=== PATIENT | female | born 1990 | race Caucasian/White ===

== ENCOUNTER 2017-03-25 20:30 | Inpatient (IN) | payer BC ==
[2017-03-25 20:58] VITALS: BMI 23.9
[2017-03-25] MEDS ORDERED: Bicitra 30 ML UDCUP PO SCH (21:30)
[2017-03-25] MEDS ORDERED: CEFAZOLIN/Water 2 GM/20 ML SYRINGE SLOW IVP SCH ×2 (21:30→23:45)
[2017-03-25] MEDS ORDERED: Lactated Ringer's 1,000 ML IV SCH (21:30)
--- NOTE | 2017-03-25 21:33 | PDOC.LDHP ---
Labor and Delivery H&P Chief complaint: loss of fluid (LOF at 2009 tonight.), other (She had been scheduled for external version next Tuesday.) HPI: Patient is a patient of Dr Mendosa with known breech persistent presentation, now at 40 weeks. She states she has seen MFM this for fetus with short forarm and altered hand morpholohy on sono. She has a history of epilepsy first DX at age 21. She takes Lamictal 400mg BID. Good FM, no VB, no PIH sxs reported. Complete ROS done and all per HPI. Current gestational age (weeks): 40 Dating criteria: last menstrual period Grav: 1 Para: 0 Current complications: breech, other (Suspected 2 vessel cord and physical abnormaliites (arm/hand).) Abnormal US findings: Yes (As described.) Current medications: other (Lamictel 400 mg BID) Previous surgical history: other (Oral surgery- tooth extractions) Allergies/Adverse Reactions: Allergies Allergy/AdvReac Type Severity Reaction Status Date / Time No Known Allergies Allergy Unverified 03/25/17 20:58 Social history: none - Physical Exam Vital signs reviewed and normal: yes General: NAD Heart: RRR Lungs: CTAB Abdomen: other (Bedside sono by me confirms breech (complete) with head at maternal right upper quadrant. FHTs seen.) Extremeties: no edema FHT: category 1 [place] contractions every: irregular - Assessment L&D Assessment: term rupture in membranes (Grossly ruptured on exam.) Brech. anomalies. - Plan Plan: admit to L&D, to OR for section, informed consent obtained, other (Neonataology consulted. Dr Mendosa aware and on her way to L&D. Care reviewed with her. Plan discussed with the patient.)
[2017-03-25 21:51] LABS: #Lymphocytes 2.1 thou/uL (1.20-3.40); #Monocytes 0.7 thou/uL (0.11-0.59); #Neutrophils 9.2 thou/uL (1.40-6.50); %Basophils 0.2 % (0.0-1.0); %Eosinophils 0.3 % (0.0-10.0); %Monocytes 6.2 % (0.0-10.0); Mean Platelet Volume 8.1 fL (7.4-10.4); White Blood Cell (WBC) Count 12.1 thou/uL (4.8-10.8)
[2017-03-25] MEDS ORDERED: Fentanyl 100 MCG/2 ML VIAL ONE (22:16)
[2017-03-25] MEDS ORDERED: ePHEDrine/0.9% NaCl/PF SYRINGE 50 mg/10 ml ONE (22:16)
[2017-03-25] MEDS ORDERED: Oxytocin 10 UNITS/ML VIAL ONE ×2 (22:16→23:56)
[2017-03-25] MEDS ORDERED: Morphine PF 1 MG/ML SYR ONE (22:18)
--- NOTE | 2017-03-25 22:30 | PDOC.EVN ---
Event Note - Event Note Event Note: 03/25/17 @2221: Patient has been "bumped" for CS due to laboring twins with twin A breech. Dr Mendosa present in L&D and aware of need to bump. I will be performing the other patient's first. Anesthesia aware.
[2017-03-25] MEDS ORDERED: Ketorolac Tromethamine 30 MG/ML VIAL ONE (23:56)
[2017-03-25] MEDS ORDERED: Ondansetron HCl/PF 4 MG/2 ML Vial ONE (23:56)
--- NOTE | 2017-03-26 00:57 | PDOC.OPDEL ---
OB Operative/Delivery Note Delivery Dr/Surgeon: Navya Assist: Munson Pre-Delivery Diagnosis: breech, ruptured membrane Procedure/Post Delivery Dx: primary low transverse CS Weeks gestation: 40 Anesthesia: local - Findings A Sex: female - 1 min: 8 - 5 min: 9 - Additional Findings/Plan Placenta delivered: manual removal findings: low transverse hysterotomy without extension Estimated blood loss: 500ml
--- NOTE | 2017-03-26 00:57 | PDOC.EVN ---
Event Note - Event Note Event Note: 03/26/17 @ 0055: Asked to assist Dr Mendosa on this primary CSection for Breech. LTCS performed under spinal. 2 vessel cord noted and hypoplasic arm with malformed hand noted. Baby was vigorous. Please see full OP note by Dr Mendosa.
[2017-03-26] MEDS ORDERED: Bisacodyl 10 MG SUPP PR PRN (00:58)
[2017-03-26] MEDS ORDERED: Eucerin (Mineral Oil/Petrolatum,White) 30 gm Jar TOP PRN (00:58)
[2017-03-26] MEDS ORDERED: Meperidine HCl/PF 25 MG/ML VIAL SLOW IVP PRN (00:58)
[2017-03-26] MEDS ORDERED: diphenhydrAMINE 50 MG/ML VIAL IVP PRN (00:58)
[2017-03-26] MEDS ORDERED: Morphine 4 MG/ML VIAL SLOW IVP PRN (00:58)
[2017-03-26] MEDS ORDERED: HYDROmorphone 2 MG/ML VIAL SLOW IVP PRN (00:58)
[2017-03-26] MEDS ORDERED: Naloxone HCl 0.4 mg/ml Vial IV PRN (00:58)
[2017-03-26] MEDS ORDERED: Naloxone HCl 0.4 mg/ml Vial IVP PRN ×2 (00:58)
[2017-03-26] MEDS ORDERED: Promethazine HCl 25 MG SUPP PR PRN (00:58)
[2017-03-26] MEDS ORDERED: HYDROcodone/Acetaminophen 5/325 mg Tablet PO PRN (00:58)
[2017-03-26] MEDS ORDERED: Promethazine HCl 25 MG/ML VIAL IM PRN ×2 (00:58)
[2017-03-26] MEDS ORDERED: Ketorolac Tromethamine 30 MG/ML VIAL IVP PRN (00:58)
[2017-03-26] MEDS ORDERED: Ondansetron HCl/PF 4 MG/2 ML Vial IVP PRN ×2 (00:58)
[2017-03-26] MEDS ORDERED: Zolpidem Tartrate 5 MG TAB PO PRN (00:58)
[2017-03-26] MEDS ORDERED: Adacel (T-DAP) 0.5 ML VIAL IM ONE (00:58)
[2017-03-26] MEDS ORDERED: Communication Order-Pharmacy FS SCH (01:00)
[2017-03-26] MEDS ORDERED: Misoprostol 200 MCG TAB PR SCH (01:00)
[2017-03-26] MEDS ORDERED: Lactated Ringer's 1,000 ML IV SCH (01:00)
[2017-03-26] MEDS ORDERED: Ketorolac Tromethamine 30 MG/ML VIAL IVP SCH (01:00)
[2017-03-26] MEDS ORDERED: LR / Pitocin 40 units/1000 ml 1,000 ML ONE (02:50)
[2017-03-26 05:03] LABS: Hematocrit 33.6 % (36.0-47.0); Mean Platelet Volume 8.6 fL (7.4-10.4); Red Blood Cell (RBC) Count 3.52 mill/uL (4.20-5.40); White Blood Cell (WBC) Count 14.7 thou/uL (4.8-10.8)
[2017-03-26] MEDS: Ibuprofen 800 MG TAB PO SCH ×3 (06:40→21:35)
--- NOTE | 2017-03-26 07:19 | PDOC.PP ---
Post Progress Note Post Day #: 0 Subjective: Doing well Vital Signs (12 hours) Temp Pulse Resp BP Pulse Ox 03/26/17 05:45 63 18 115/66 96 03/26/17 04:45 98.0 F 79 17 126/84 98 03/26/17 03:45 98.2 F 63 18 119/77 98 03/25/17 22:16 98.4 F 76 18 Weight Weight 162 lb - Physical Examination Cardiovascular: no m/r/g Respiratory: clear to auscultation bilaterally Abdominal: appropriately TTP Neurological: no gross focal deficits Result Diagrams: 03/26/17 04:49 Additional Labs: Post Labs Blood Type A NEGATIVE 03/25/17 21:35 Hep Bs Antigen Non-Reactive S/CO (NonReactive) 03/25/17 21:35 (1) delivery delivered Code(s): O82 - ENCOUNTER FOR DELIVERY WITHOUT INDICATION Status: Acute - Assessment/Plan 1. Day 7 hours or so. 2. Routine care 3. Advance diet as tolerated 4. Vitals stable
[2017-03-26] MEDS: Docusate (Surfak) 240 MG CAP PO SCH ×2 (09:18→21:35)
[2017-03-26] MEDS: Ferrous Sulfate 325 MG TAB PO SCH ×2 (09:25→21:37)
[2017-03-26] MEDS ORDERED: Sodium Chloride 0.9% 10 ML ONE (13:44)
[2017-03-26] MEDS: HYDROcodone/Acetaminophen 5/325 mg Tablet PO PRN ×2 (15:22→21:35)
--- NOTE | 2017-03-26 16:00 | OP ---
DATE OF SURGERY: 03/26/2017 PREOPERATIVE DIAGNOSES: 1. A 26-year-old white female G1, P0 at 40 weeks' gestation. 2. Complete breech presentation. 3. Spontaneous rupture of membranes and early labor. POSTOPERATIVE DIAGNOSES: 1. A 26-year-old white female G1, P0 at 40 weeks' gestation. 2. Complete breech presentation. 3. Spontaneous rupture of membranes and early labor. PROCEDURE PERFORMED: Primary low transverse section without extension. SURGEON: Chen Mendosa M.D. COPPERSMITH HELPER: Rohith Munson M.D. ANESTHESIA: Spinal block. ESTIMATED BLOOD LOSS: 500 mL. COMPLICATIONS: None. ANTIBIOTICS: Two grams Ancef consumer services advisor to the OR. COUNTS: Correct x2. FINDINGS: 1. Female infant, vertex presentation, clear amniotic fluid noted. Apgars 9 and 9. 2. 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 3. Normal appearing fallopian tubes, uterus, and ovaries. 4. Clear urine present in Mon catheter. DISPOSITION: To the recovery room stable. DESCRIPTION OF OPERATIVE PROCEDURE: The patient previously received informed consent in regards to serafin echavarria. She was taken back to the operating room where she received a spinal block without complicat ions. She was placed in the supine position, prepped and draped in usual sterile fashion. SCDs aol g with Mon catheter was placed during this prep process. At this time, a Pfannenstiel incision was made in the lower abdomen. It was carried down the fascia. Fascia was nicked in midline. Fascial incision was extended bilaterally with curved Trevizo scissors. Rectus fascia was then dissected superi sagar and inferiorly off the rectus muscle bellies. The rectus muscle bellies were divided in midline . The peritoneal cavity was entered. A large Jd O retractor placed for additional traction and exposure. A 2 cm hysterotomy incision was made above the vesicouterine peritoneal fold and the infan t was delivered first with the buttocks, then by each leg atraumatically and a corkscrewing technique was utilized to deliver each arm with flexion of the head externally by my call center assistant with atra umatic delivery of the head. The mouth and nares of the were bulb suctioned on the abdo men. The cord was doubly clamped and cut and handed to the ice guard tester, Dr. Elam who was pre sent. The cord blood was collected along with delivery of the placenta. The placenta was sent to pathology due to the single umbilical artery, no previously mentioned findings. The uterus was curetted of any remaining placental fragments with a dry laparotomy sponge and the hys terotomy incision was closed in running locking fashion with #1 Monocryl suture. Hemostasis was conf irmed. Pelvis was irrigated and suctioned. Again, hemostasis along the hysterotomy line was confirm ed. The Jd O retractor was then removed. The peritoneal cavity again was inspected, hemostasis was confirmed. The rectus muscle bellies were noted to be hemostatic prior to fascial closure. The fascia was closed with 0 PDS suture x2 in running continuous fashion. Subcutaneous tissue was noted to be hemostatic prior to skin approximation with iris. The surgery was terminated and no anesthe tic or surgical complications.
[2017-03-27] MEDS: Ibuprofen 800 MG TAB PO SCH ×3 (06:27→21:49)
[2017-03-27] MEDS: Lanolin Ointment 7 GM TUBE TOP PRN (06:27)
[2017-03-27] MEDS: HYDROcodone/Acetaminophen 5/325 mg Tablet PO PRN ×2 (06:30→16:31)
--- NOTE | 2017-03-27 07:57 | PDOC.PP ---
Post Progress Note Post Day #: 1 Subjective: Doing well, no complaints. PO intake tolerated: yes Flatus: yes Ambulation: yes Vital Signs (12 hours) Temp Pulse Resp BP 03/27/17 04:07 98.0 F 85 18 112/56 L Weight Weight 162 lb - Physical Examination General: NAD Respiratory: non-labored breathing Abdominal: lochia (normal), no distention, appropriately TTP Fundus firm & at: U-4 Skin: CS incision dry & intact, no rash Neurological: no gross focal deficits Psychiatric: A&Ox3, normal affect Result Diagrams: 03/26/17 04:49 Additional Labs: Post Labs Blood Type A NEGATIVE 03/25/17 21:35 Hep Bs Antigen Non-Reactive S/CO (NonReactive) 03/25/17 21:35 (1) Breech delivery Code(s): O32.1XX0 - MATERNAL CARE FOR BREECH PRESENTATION, UNSP Status: Acute (2) delivery delivered Code(s): O82 - ENCOUNTER FOR DELIVERY WITHOUT INDICATION Status: Acute - Assessment/Plan Patient doing well POD1. Continue routine postop management with likely d/c tomorrow.
[2017-03-27] MEDS: Docusate (Surfak) 240 MG CAP PO SCH ×2 (08:35→21:48)
[2017-03-27] MEDS: Ferrous Sulfate 325 MG TAB PO SCH ×2 (08:37→21:52)
[2017-03-27] MEDS: Simethicone Chewable 80 MG TAB PO PRN ×2 (10:56→16:31)
[2017-03-28] MEDS: Ibuprofen 800 MG TAB PO SCH (06:07)
[2017-03-28] MEDS: HYDROcodone/Acetaminophen 5/325 mg Tablet PO PRN (06:09)
--- NOTE | 2017-03-28 07:55 | PDOC.PP ---
Post Progress Note Post Day #: 3 Subjective: Tolerating diet. feels well. ready to go home. PO intake tolerated: yes Flatus: yes Ambulation: yes Vital Signs (12 hours) Temp Pulse Resp BP 03/27/17 20:20 98.2 F 73 16 122/73 Weight Weight 162 lb - Physical Examination General: NAD Cardiovascular: no m/r/g, RRR Respiratory: clear to auscultation bilaterally, non-labored breathing Abdominal: + bowel sounds, lochia, no distention, appropriately TTP Result Diagrams: 03/26/17 04:49 Additional Labs: Post Labs Blood Type A NEGATIVE 03/25/17 21:35 Hep Bs Antigen Non-Reactive S/CO (NonReactive) 03/25/17 21:35 - Assessment/Plan Doing well post op day 3 f/u staple removal in office 03/30 6 week post d/c home
[2017-03-28 09:17] VITALS: BP 122/70; TEMP 98
[2017-03-28] MEDS: Docusate (Surfak) 240 MG CAP PO SCH (09:26)
[2017-03-28] MEDS: Lanolin Ointment 7 GM TUBE TOP PRN (09:27)
[2017-03-28] MEDS: Ferrous Sulfate 325 MG TAB PO SCH (11:18)
== END 2017-03-28 12:40 | disposition home or self-care (01) | DRG 765 ==
LOC: L&D/OP 20:30 → L&D 22:00 → 3SW 03-26 03:40
PROVIDERS: ADMIT Obstetrics & Gynecology; ATTEND Obstetrics & Gynecology
PROC: 10D00Z1 Extraction of Products of Conception, Low, Open Approach (ICD-10-PCS; principal; 2017-03-26)
PROC: 3E0334Z Introduction of Serum, Toxoid and Vaccine into Peripheral Vein, Percutaneous Approach (ICD-10-PCS; 2017-03-26)
DX: O64.1XX0 Obstructed labor due to breech presentation, not applicable or unspecified (principal); O99.354 Diseases of the nervous system complicating childbirth; G40.909 Epilepsy, unspecified, not intractable, without status epilepticus; O26.893 Other specified pregnancy related conditions, third trimester; Z67.11 Type A blood, Rh negative; Z3A.40 40 weeks gestation of pregnancy; Z37.0 Single live birth; O36.8930 Maternal care for other specified fetal problems, third trimester, not applicable or unspecified
CPT/HCPCS: 36415; 85025; 85027; 85461; 86780; 86850; 86870; 86900; 86901; 86922; 87340; 87389; 88307; 90384; 96372; A4216; J1885; J2274; J2405; J2590; J3010

== ENCOUNTER 2019-02-06 23:58 | Day surgery (SDC) | payer BC ==
[2019-02-07 00:33] VITALS: BP 126/83; TEMP 98.2; BMI 24.2
[2019-02-07] MEDS ORDERED: hydrALAZINE 20 MG/ML VIAL SLOW IVP PRN (01:05)
[2019-02-07] MEDS ORDERED: Lactated Ringer's 1,000 ML IV SCH (01:15)
[2019-02-07] MEDS ORDERED: FLU VACC QS2019-20(6MOS UP)/PF 60 MCG/0.5 ML SYRINGE IM ONE (02:00)
--- NOTE | 2019-02-07 06:23 | PRG ---
DATE OF SERVICE: 02/06/2019 PRIMARY OB: Ashley Black MD CHIEF COMPLAINT: Uterine contractions. HISTORY OF PRESENT ILLNESS: The patient is a 28-year-old G2, P1 female with an intrauterine at 38 weeks and 5 days, who is presenting to Labor and Delivery after being awoken around 10 o'clock with uterine contractions. She reports that she is feeling her contractions about every 4 to 5 minutes, they are not particularly painful at this time, but came in for evaluation. The patient is scheduled for a repeat . She had a prior for breech presentation and has declined a trial of labor after . The patient denies any vaginal bleeding or leakage of fluid and has no other obstetric concerns. PAST MEDICAL HISTORY: Seizure disorder, stable on medication. PAST SURGICAL HISTORY: One prior , wisdom tooth extraction and repair of a broken nose, and inguinal hernia repair. ALLERGIES: NO KNOWN DRUG ALLERGIES. MEDICATIONS: vitamins, antiepileptic medication. SOCIAL HISTORY: Denies drug, alcohol, or tobacco use. OB LABS: Blood type is A negative. Hepatitis B surface antigen is negative. She is rubella immune. GBS negative. RPR negative. REVIEW OF SYSTEMS: Per HPI. PHYSICAL EXAMINATION: VITAL SIGNS: Blood pressure 126/83, heart rate of 73, respiratory rate of 18, saturating 100% on room air, temperature 98.2. GENERAL: She appeared to be in no acute distress. She is alert, oriented, cooperative, and pleasant to interact with. HEAD: Normocephalic, atraumatic. LUNGS: Clear to auscultation bilaterally. HEART: Has a regular rate and rhythm. ABDOMEN: Gravid and soft. EXTREMITIES: Nontender, nonedematous. : Per nursing staff, cervix is closed, thick and high. Repeat exam 2 hours later is unchanged. heart tracing and NST for abdominal pain in , baseline is noted to be in the 130s with moderate long-term variability, positive 15 x 15 accelerations, no decelerations. Tocometer showing irregular contractions anywhere from 2 to 5 minutes initially. After IV hydration, contractions have spaced out significantly to every 20 minutes. ASSESSMENT AND PLAN: The patient is a 28-year-old G2, P1 female with an intrauterine at 38 weeks and 5 days, here for term contractions. No evidence of labor at this time. She is scheduled for repeat on February 13. The fetus has a reactive NST. The patient is being discharged home with term labor precautions. Job ID: [id number]
== END 2019-02-07 02:55 | disposition home or self-care (01) ==
LOC: L&D/OP 23:58
PROVIDERS: ATTEND Student in an Organized Health Care Education/Training Program
DX: O47.1 False labor at or after 37 completed weeks of gestation (principal); O34.219 Maternal care for unspecified type scar from previous cesarean delivery; O99.353 Diseases of the nervous system complicating pregnancy, third trimester; G40.909 Epilepsy, unspecified, not intractable, without status epilepticus; Z3A.38 38 weeks gestation of pregnancy; Z79.899 Other long term (current) drug therapy
CPT/HCPCS: 96360; 96361; 99283

== ENCOUNTER 2019-02-13 10:01 | Inpatient (IN) | payer BC ==
[2019-02-13] MEDS ORDERED: hydrALAZINE 20 MG/ML VIAL SLOW IVP PRN ×2 (10:28→16:56)
[2019-02-13] MEDS ORDERED: Bicitra 30 ML UDCUP PO SCH (10:28)
[2019-02-13] MEDS ORDERED: CEFAZOLIN 2 GM in Premix Bag 1 BAG IVPB SCH (10:28)
[2019-02-13] MEDS ORDERED: Promethazine HCl 25 MG/ML VIAL IM PRN ×4 (10:28→16:56)
[2019-02-13] MEDS ORDERED: Ondansetron PF 4 MG/2 ML Vial IVP PRN ×4 (10:28→16:56)
[2019-02-13] MEDS: Lactated Ringer's 1,000 ML IV SCH ×3 (11:05→23:55)
[2019-02-13] MEDS ORDERED: ePHEDrine 50 MG/ML VIAL ONE (11:11)
[2019-02-13] MEDS ORDERED: Dexamethasone 20 MG/5 ML VIAL ONE (11:11)
[2019-02-13] MEDS ORDERED: Ondansetron PF 4 MG/2 ML Vial ONE ×2 (11:11→11:51)
[2019-02-13 11:17] LABS: Mean Corpuscular HGB CONC 34.4 g/dL (32.0-36.0); Mean Corpuscular Volume 90.2 fL (78.0-98.0); Mean Platelet Volume 8.4 fL (7.4-10.4); Platelet Count 212 thou/uL (130-400); Red Blood Cell (RBC) Count 4.19 mill/uL (4.20-5.40); White Blood Cell (WBC) Count 10.3 thou/uL (4.8-10.8)
[2019-02-13 11:30] VITALS: BMI 23.6
[2019-02-13] MEDS ORDERED: HYDROmorphone 2 MG/ML VIAL SLOW IVP PRN ×2 (11:39→12:54)
[2019-02-13] MEDS ORDERED: Promethazine HCl 25 MG SUPP PR PRN ×2 (11:39→12:54)
[2019-02-13] MEDS ORDERED: diphenhydrAMINE 50 MG/ML VIAL IVP PRN ×2 (11:39→12:54)
[2019-02-13] MEDS ORDERED: Naloxone HCl 0.4 mg/ml Vial IV PRN ×2 (11:39→12:54)
[2019-02-13] MEDS ORDERED: Ketorolac Tromethamine 30 MG/ML VIAL IVP PRN (11:39)
[2019-02-13] MEDS ORDERED: Meperidine HCl/PF 25 MG/ML VIAL SLOW IVP PRN ×2 (11:39→12:54)
[2019-02-13] MEDS ORDERED: L&D-Morphine 4 MG/ML VIAL SLOW IVP PRN ×2 (11:39→12:54)
[2019-02-13] MEDS ORDERED: Ondansetron HCl/PF 4 MG/2 ML Vial IVP PRN ×2 (11:39→12:54)
[2019-02-13] MEDS ORDERED: Naloxone HCl 0.4 mg/ml Vial IVP PRN ×4 (11:39→12:54)
[2019-02-13] MEDS ORDERED: Communication Order-Pharmacy FS SCH ×2 (11:45→13:00)
[2019-02-13] MEDS ORDERED: Ketorolac Tromethamine 30 MG/ML VIAL IVP SCH ×2 (11:45→13:00)
[2019-02-13] MEDS ORDERED: MORPHINE 5 MG/10 ML PF VIAL ONE (11:50)
[2019-02-13] MEDS ORDERED: Dexamethasone 4 mg/ml Vial ONE (11:51)
[2019-02-13] MEDS ORDERED: Oxytocin 10 UNITS/ML VIAL ONE ×2 (11:51→12:52)
[2019-02-13] MEDS ORDERED: ePHEDrine/0.9% NaCl/PF SYRINGE 50 mg/10 ml ONE (11:51)
[2019-02-13 11:59] LABS: Syphilis Antibody Nonreactive (Nonreactive); Syphilis Antibody Index 0.06 S/CO (<1.00 Non-Reactive)
[2019-02-13 12:00] LABS: HBSAg Index 0.13 S/CO (0-0.99); Hep B Surf Ag Non-Reactive S/CO (NonReactive)
--- NOTE | 2019-02-13 12:12 | PDOC.LDHP ---
Labor and Delivery H&P Chief complaint: scheduled section HPI: 28yo at 39w4d by LMP here for RCS. No complaints. Current gestational age (weeks): 39 Due date: 02/16/19 Dating criteria: last menstrual period Grav: 2 Para: 1 Current complications: none Abnormal US findings: No Past Medical History: denies Current medications: pre-brent vitamins Previous surgical history: low tranverse CS Allergies/Adverse Reactions: Allergies Allergy/AdvReac Type Severity Reaction Status Date / Time No Known Allergies Allergy Verified 02/07/19 00:22 Social history: none - Physical Exam Vital signs reviewed and normal: yes General: NAD Heart: RRR Lungs: CTAB Abdomen: gravid Extremeties: no edema FHT: category 1 [place] contractions every: none - OB Labs Blood type: A RH: negative Antibody Screen: positive HIV: negative RPR: negative HEPSAg: negative 1 hour GCT: negative GBS: negative Urine drug screen: negative Rubella: immune - Assessment L&D Assessment: scheduled repeat section - Plan Plan: admit to L&D, to OR for section, informed consent obtained, anesthesia consult for pain management
--- NOTE | 2019-02-13 12:19 | PDOC.OPDEL ---
OB Operative/Delivery Note Delivery Dr/Surgeon: Sofia Assist: Sonja Pre-Delivery Diagnosis: scheduled section Procedure/Post Delivery Dx: repeat low transverse CS Weeks gestation: 39 Anesthesia: spinal - Findings A Sex: female Weight: 7 lb 11 oz - 1 min: 8 - 5 min: 9 - Additional Findings/Plan Placenta delivered: spontaneous findings: low transverse hysterotomy without extension, normal uterus, normal tubes, normal ovaries Post delivery plan: routine recovery
--- NOTE | 2019-02-13 13:30 | OP ---
DATE OF PROCEDURE: 02/13/2019 PREOPERATIVE DIAGNOSES: 1. Intrauterine at 39 weeks and 4 days. 2. Prior section x1, declines trial of labor. POSTOPERATIVE DIAGNOSES: 1. Intrauterine at 39 weeks and 4 days. 2. Prior section x1, declines trial of labor. PROCEDURE PERFORMED: Repeat low-transverse section via Pfannenstiel skin incision. ANESTHESIA: Spinal. GYN PHYSICIAN: Livier Casillas PA-C ESTIMATED BLOOD LOSS: 300 mL. COMPLICATIONS: None. DRAINS: Mon catheter. PATHOLOGY: None. FINDINGS: Female , cephalic presentation, clear amniotic fluid. Apgars 8 and 9, weighing 7 pounds 11 ounces. Hysterotomy without extension. Excellent hemostasis. Several small subserosal fibroids on the posterior surface of the uterus. Normal fallopian tubes and ovaries bilaterally. DESCRIPTION OF PROCEDURE: The patient was taken to the operating room, where spinal anesthesia was obtained without difficulty. The patient was prepped and draped in a sterile fashion in the dorsal supine position with a leftward tilt. After ensuring adequacy of anesthesia, a Pfannenstiel skin incision was made and carried down to the underlying subcutaneous tissue with the knife. The fascia was nicked in the midline with a knife and carried laterally with the Trevizo scissors. The superior aspect of the fascia was tented with two Jo's and dissected off the rectus with the Trevizo scissors. The inferior aspect of the fascia was tented with two Jo's and dissected off the rectus with the Trevizo's. The rectus was divided in the midline with the knife, and the peritoneum was manually entered into and retracted. The Jd O retractor was placed. The vesicouterine peritoneum was incised with the Metzenbaum's and the lower uterine segment was incised in a transverse fashion and extended with a Amado maneuver. The 's head was brought to the hysterotomy and delivered with fundal pressure. The infant's cord was clamped after delay cord clamping and handed to awaiting PD team. Cord blood was obtained. The placenta was allowed to spontaneously deliver. The uterus was exteriorized, cleared of all clots and debris and placed back into the abdomen. The hysterotomy was repaired with #1 Monocryl in a running locking fashion with excellent hemostasis. Irrigation was performed of the pelvis and paracolic gutters. The Jd O retractor was then removed and the rectus muscles were examined and noted to be hemostatic. The fascia was reapproximated with a 0 PDS x1 suture with excellent reapproximation. The subcutaneous tissue was irrigated and cauterized of any bleeders and reapproximated with a 2-0 plain gut in a running fashion. The skin was closed with 4-0 Monocryl in subcuticular fashion. Dermabond was applied. The patient tolerated the procedure well. Sponge and needle counts correct x2. The patient was taken to recovery room in stable condition. The patient received Ancef 2 g prior to the procedure. Job ID: [id number]
[2019-02-13] MEDS ORDERED: Bisacodyl 10 MG SUPP PR PRN (16:56)
[2019-02-13] MEDS ORDERED: Adacel (T-DAP) 0.5 ML SYRINGE IM ONE (16:56)
[2019-02-13] MEDS ORDERED: Acetaminophen 325 MG TAB PO PRN (16:56)
[2019-02-13] MEDS ORDERED: Simethicone Chewable 80 MG TAB PO PRN (16:56)
[2019-02-13] MEDS ORDERED: diphenhydrAMINE 25 MG CAP PO PRN (16:56)
[2019-02-13] MEDS ORDERED: Sodium Chloride 0.9% 0 ML ONE (20:31)
[2019-02-13] MEDS: Ferrous Sulfate 325 MG TAB PO SCH (22:05)
[2019-02-13] MEDS: Docusate Calcium (SURFAK) 240 MG CAP PO SCH (22:05)
[2019-02-13] MEDS: Ketorolac Tromethamine 30 MG/ML VIAL IVP PRN (23:50)
[2019-02-14] MEDS ORDERED: Zolpidem Tartrate 5 MG TAB PO PRN (01:00)
[2019-02-14] MEDS ORDERED: HYDROcodone/Acetaminophen 5/325 mg Tablet PO PRN ×2 (01:00)
[2019-02-14] MEDS: Lactated Ringer's 1,000 ML IV SCH ×2 (05:05→08:05)
[2019-02-14 05:33] LABS: Hemoglobin 10.8 g/dL (12.0-16.0); Mean Corpuscular HGB CONC 34.7 g/dL (32.0-36.0); Mean Corpuscular Volume 92.1 fL (78.0-98.0); Platelet Count 159 thou/uL (130-400); RBC Distribution Width 11.9 % (11.5-14.5); Red Blood Cell (RBC) Count 3.37 mill/uL (4.20-5.40); White Blood Cell (WBC) Count 10.5 thou/uL (4.8-10.8)
[2019-02-14] MEDS: Ketorolac Tromethamine 30 MG/ML VIAL IVP PRN (06:11)
[2019-02-14] MEDS: Docusate Calcium (SURFAK) 240 MG CAP PO SCH ×3 (08:01→23:36)
[2019-02-14] MEDS: Ferrous Sulfate 325 MG TAB PO SCH ×2 (08:04→22:35)
[2019-02-14] MEDS ORDERED: FLU VACC QS2019-20(6MOS UP)/PF 60 MCG/0.5 ML SYRINGE IM ONE (11:45)
[2019-02-14] MEDS: Ibuprofen 800 MG TAB PO SCH ×3 (14:23→23:36)
--- NOTE | 2019-02-14 16:33 | PDOC.PP ---
Post Progress Note Post Day #: 1 Subjective: PT is doing well PPD1. Pain is well controlled. Minimal lochia. She has been up and ambulatory. She is tolerating PO. She is urinating without difficulty. Baby is breast feeding well. No leg pain or swelling. No CP or SOB. PO intake tolerated: yes Flatus: yes Ambulation: yes Vital Signs (12 hours) Temp Pulse Resp BP Pulse Ox 02/14/19 11:40 97.7 F 60 16 110/53 L 100 02/14/19 07:10 98.8 F 66 16 105/62 97 Weight Weight 160 lb - Physical Examination General: NAD Respiratory: non-labored breathing Abdominal: + bowel sounds, lochia, no distention, appropriately TTP Fundus firm & at: 1 cm below umbilicus Extremities: negative homans (B) Skin: CS incision dry & intact, no rash Neurological: no gross focal deficits Psychiatric: A&Ox3, normal affect Result Diagrams: 02/14/19 05:21 Additional Labs: Post Labs Blood Type A NEGATIVE 02/13/19 11:02 Hep Bs Antigen Non-Reactive S/CO (NonReactive) 02/13/19 11:02 (1) delivery delivered Code(s): O82 - ENCOUNTER FOR DELIVERY WITHOUT INDICATION Status: Acute - Assessment/Plan PT doing well on PPD1. Incision dry and intact. Pain well controlled. Minimal lochia. Baby breast feeding well. Plan to continue routine care with discharge tomorrow.
[2019-02-15] MEDS: Lactated Ringer's 1,000 ML IV SCH (04:28)
[2019-02-15] MEDS: Ibuprofen 800 MG TAB PO SCH (06:11)
[2019-02-15 07:47] VITALS: BP 122/71; TEMP 97.9
[2019-02-15] MEDS: Ferrous Sulfate 325 MG TAB PO SCH (09:09)
[2019-02-15] MEDS: Docusate Calcium (SURFAK) 240 MG CAP PO SCH (09:09)
--- NOTE | 2019-02-15 09:28 | PDOC.PP ---
Post Progress Note Post Day #: 2 PO intake tolerated: yes Flatus: yes Ambulation: yes Vital Signs (12 hours) Temp Pulse Resp BP Pulse Ox 02/15/19 07:58 100 02/15/19 07:46 97.9 F 77 16 122/71 100 02/15/19 06:11 97.7 F 72 18 113/76 02/14/19 23:41 97.9 F 65 18 112/69 Weight Weight 160 lb - Physical Examination General: NAD Respiratory: non-labored breathing Abdominal: no distention, appropriately TTP Fundus firm & at: umb Extremities: negative homans (B) Neurological: no gross focal deficits Psychiatric: normal affect Result Diagrams: 02/14/19 05:21 Additional Labs: Post Labs Blood Type A NEGATIVE 02/13/19 11:02 Hep Bs Antigen Non-Reactive S/CO (NonReactive) 02/13/19 11:02 - Assessment/Plan POD2 s/p RCS VSSAF Doing well, met all postop milestones. Pain controlled on motrin Hgb 10.8 postop, no s/sx anemia Rh neg, baby O neg, RImm
== END 2019-02-15 11:05 | disposition home or self-care (01) | DRG 788 ==
LOC: L&D 10:01 → 3SW 17:18
PROVIDERS: ADMIT Student in an Organized Health Care Education/Training Program; ATTEND Student in an Organized Health Care Education/Training Program
PROC: 10D00Z1 Extraction of Products of Conception, Low, Open Approach (ICD-10-PCS; principal; 2019-02-13)
PROC: 3E02340 Introduction of Influenza Vaccine into Muscle, Percutaneous Approach (ICD-10-PCS; 2019-02-13)
DX: O34.211 Maternal care for low transverse scar from previous cesarean delivery (principal); Z3A.39 39 weeks gestation of pregnancy; Z37.0 Single live birth; Z23 Encounter for immunization
CPT/HCPCS: 36415; 85027; 86780; 86850; 86900; 86901; 87340; 90471; 90686; G0008; J0131; J0690; J1100; J1885; J2274; J2405; J2590; J3490